=== PATIENT | male | born 1975 | race Caucasian/White ===

== ENCOUNTER 2019-04-08 17:13 | Emergency (ER) | payer OTHER ==
[~2019-04-08] VITALS: Ht 170.2 cm; Wt 98.4 kg
[2019-04-08 17:42] VITALS: Ht 170.2 cm; Wt 98.4 kg
[2019-04-08 19:38] LABS: microscopic required? NO
[2019-04-08 20:02] LABS: urine erythrocyte NEGATIVE (NEGATIVE)
[2019-04-08 20:04] LABS: BASOPHIL % 0.6 % (0-2); PLATELET COUNT 216 x10^3mcL (130-400); RED CELL DISTRIBUTION WIDTH 13.1 % (11.5-14.5)
[2019-04-08 20:13] LABS: CALCIUM 8.5 mg/dL (8.5-10.1); CARBON DIOXIDE 29.3 mmol/L (21-32); CHLORIDE SERUM 95 mmol/L (98-107); CREATININE SERUM 0.8 mg/dL (0.7-1.3); GFR1 > 60 mL/min; GLUCOSE SERUM 348 mg/dL (74-106); POTASSIUM SERUM 4.2 mmol/L (3.5-5.1); SODIUM SERUM 130 mmol/L (136-145)
[2019-04-08 20:17] LABS: ALKALINE PHOSPHATASE 284 U/L (46-116); ALT/SGPT 213 U/L (16-63); AST/SGOT 95 U/L (15-37); BILIRUBIN TOTAL 0.41 mg/dL (0.20-1.00); CHOLESTEROL 160 mg/dL (<200); TOTAL PROTEIN, SERUM 7.4 g/dL (6.4-8.2); TRIGLYCERIDES 140 mg/dL (<150)
[2019-04-08 20:18] LABS: CHOLESTEROL/HDL RATIO 7.3; HDL CHOLESTEROL 22 mg/dL (40-60)
[2019-04-08 21:30] VITALS: BP 138/85
== END 2019-04-08 21:57 | disposition home or self-care (01) ==
LOC: ED 17:13
PROVIDERS: Specialist
DX: R10.9 Unspecified abdominal pain (principal); R07.89 Other chest pain; E11.65 Type 2 diabetes mellitus with hyperglycemia; I10 Essential (primary) hypertension; E78.00 Pure hypercholesterolemia, unspecified
CPT/HCPCS: 82962; J7030; Q0092